=== PATIENT | female | born 1980 | race Caucasian/White ===

== ENCOUNTER → 2016-07-16 | Outpatient (CLI) | payer OTHER | LOC: YCFC.O 10:53 | PROVIDERS: ATTEND Obstetrics & Gynecology | DX: N76.0 Acute vaginitis (principal) ==

== ENCOUNTER → 2016-07-20 | Outpatient (CLI) | payer OTHER | END | disposition home or self-care (01) | LOC: YCFC.O 09:12 | PROVIDERS: ATTEND Nurse Practitioner Family | DX: R50.9 Fever, unspecified (principal) ==

== ENCOUNTER → 2016-08-13 | Outpatient (CLI) | payer OTHER | END | disposition home or self-care (01) | LOC: YCFC.O 09:15 | PROVIDERS: ATTEND Nurse Practitioner Family | DX: E11.9 Type 2 diabetes mellitus without complications (principal); E78.5 Hyperlipidemia, unspecified ==

== ENCOUNTER 2016-08-19 19:16 | Emergency (ER) | payer OTHER ==
--- NOTE | 2016-08-19 20:11 | ED.PDOC ---
History of Present Illness - General Chief Complaint: Respiratory Problem Stated Complaint: flu like sym Time Seen by Provider: 08/19/16 20:05 - History of Present Illness Initial Comments: COUGH, CONGESTION, Timing/Duration: other - 1 DAY Severity: moderate Improving Factors: nothing Worsening Factors: nothing Associated Symptoms: other - RECENTLY TX'D FOR STREP THROAT FELLS THE SAME Allergies/Adverse Reactions: Allergies Acetaminophen [From Darvocet-N] Allergy (Verified 11/19/14 12:19) Vomitting Propoxyphene [From Darvocet-N] Allergy (Verified 11/19/14 12:19) Vomitting Home Medications: Ambulatory Orders Etanercept [Enbrel] 50 mg SC .QSAT 11/19/14 Doxycycline (Monohydrate) [Doxycycline Monohydrate] 100 mg PO BID #20 cap Lisinopril & Hydrochlorothiazi [Lisinopril/Hctz 20-25 mg] 20 - 25 tab PO DAILY 08/19/16 Metformin HCl [Metformin HCl ER] 500 mg PO DAILY 08/19/16 Methotrexate Sodium [Methotrexate] 7.5 mg PO WKLY 08/19/16 Nortriptyline HCl 25 mg PO BEDTIME 08/19/16 Topiramate [Topamax] 100 mg PO TID 08/19/16 Review of Systems - Review of Systems Constitutional: States: chills, fever EENTM: Denies: ear pain, throat pain 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 Denies: short of breath, wheezing Cardiology: Denies: chest pain, palpitations, syncope Gastrointestinal/Abdominal: Denies: abdominal pain, nausea, vomiting Genitourinary: States: no symptoms reported Musculoskeletal: States: no symptoms reported Skin: States: no symptoms reported Neurological: States: no symptoms reported Endocrine: States: no symptoms reported Hematologic/Lymphatic: States: no symptoms reported Past Medical History (General) - Patient Medical History Hx Seizures: No Hx Stroke: No Hx Dementia: No Hx Asthma: No Hx of COPD: No Hx Cardiac Disorders: No Hx Congestive Heart Failure: No Hx Pacemaker: No Hx Hypertension: Yes Hx Thyroid Disease: No Hx Diabetes: Yes Hx Gastroesophageal Reflux: No Hx Renal Disease: No Hx of HIV: No Hx MRSA: No - Vaccination History Hx Tetanus, Diphtheria Vaccination: Yes Hx Influenza Vaccination: Yes Hx Pneumococcal Vaccination: No Immunizations Up to Date: Yes - Social History Hx Tobacco Use: No Hx Alcohol Use: No Hx Substance Use: No - Female History Patient is a Female of Child Bearing Age (10 -59 yrs old): Yes Family Medical History - Family History Father Living Status: Cause of : [place] Hx Family Hypertension: Yes Hx Family Stroke: Yes Hx Cardiac Disease: Yes Hx Family Cancer: Yes - breast,lung Hx Family;Other: rheumatoid arthritis Mother Family History: Unknown Hx Family Cancer: Yes - colon Physical Exam - Physical Exam General Appearance: Alert, No apparent distress, Obese Eye Exam: bilateral normal Ears, Nose, Throat: normal ENT inspection, other - MOIST MM Neck: non-tender, supple, normal inspection Respiratory: lungs clear, normal breath sounds, no respiratory distress Cardiovascular/Chest: regular rate, rhythm, no murmur Gastrointestinal/Abdominal: normal bowel sounds, non tender, soft, no organomegaly Back Exam: normal inspection, no CVA tenderness Extremity: normal range of motion, non-tender, normal inspection Neurologic: alert, normal mood/affect Skin Exam: normal color, warm/dry Lymphatic: no adenopathy Progress - Progress Progress: 08/19/16 21:35 VSS STILL TACHY, PULSE 115. SATS 97% RA (NL)WILL GIVE SECOND BOLUS AND ROCEPHIN 08/19/16 22:50 FEELS BETTER. PULSE 100-110. WILL FINISH IVF AND D/C - EKG/XRAY/CT XRAY: chest - MILD ELAINA PERIHILAR INFILTRATES Departure - Departure Clinical Impression: Pneumonitis, Essential hypertension Time of Disposition: 22:53 Disposition: Discharge to Home or Self Care Condition: Good Departure Forms: ED Discharge - Pt. Copy, Patient Portal Self Enrollment Instructions: Pneumonia-Adult Prescriptions: Doxycycline (Monohydrate) [Doxycycline Monohydrate] 100 mg PO BID #20 cap Home Medications: Ambulatory Orders Etanercept [Enbrel] 50 mg SC .QSAT 11/19/14 Doxycycline (Monohydrate) [Doxycycline Monohydrate] 100 mg PO BID #20 cap Lisinopril & Hydrochlorothiazi [Lisinopril/Hctz 20-25 mg] 20 - 25 tab PO DAILY 08/19/16 Metformin HCl [Metformin HCl ER] 500 mg PO DAILY 08/19/16 Methotrexate Sodium [Methotrexate] 7.5 mg PO WKLY 08/19/16 Nortriptyline HCl 25 mg PO BEDTIME 08/19/16 Topiramate [Topamax] 100 mg PO TID 08/19/16
[2016-08-19] MEDS ORDERED: SODIUM CHLORIDE 0.9% 1000ML 1,000 ML IVS ONE ×2 (20:14→21:44)
--- NOTE | 2016-08-19 20:37 | RAD ---
PROCEDURE: Chest,2 Views CLINICAL HISTORY: COUGH INDICATION: Same as above COMPARISON: None TECHNIQUE: PA and and lateral chest radiographs were obtained. FINDINGS: The lung galvez are well inflated. There are no discrete airspace infiltrates, pneumothoraces or pleural effusions. The pulmonary vascularity is normal The cardiomediastinal silhouette is unremarkable for patient's age and sex. IMPRESSION: There is no acute pleural-parenchymal process seen in the imaged lung galvez. Place of interpretation: [facility]. Electronically signed by: Chucky Jay MD 08/19/2016 8:37 PM MAT TESTER
[2016-08-19] MEDS ORDERED: cefTRIAXone SODIUM 1 GM in SODIUM CHL 0.9% 50ML MIN-BAG+ 50 ML IVPB ONE (21:38)
[2016-08-19] MEDS ORDERED: SODIUM CHL 0.9% 50ML MIN-BAG+ 50 ML IVPB ONE (21:44)
[2016-08-19] MEDS ORDERED: cefTRIAXone SODIUM 1 GM VIAL ONE (21:44)
[2016-08-19 22:26] VITALS: O2SAT 100
[2016-08-19 23:06] VITALS: BP 103/69; TEMP 100.5
== END 2016-08-19 23:05 | disposition home or self-care (01) ==
LOC: ER 19:16
DX: J18.9 Pneumonia, unspecified organism (principal); E11.9 Type 2 diabetes mellitus without complications; Z88.6 Allergy status to analgesic agent; Z88.8 Allergy status to other drugs, medicaments and biological substances; Z79.899 Other long term (current) drug therapy

== ENCOUNTER 2016-08-21 21:50 | Emergency (ER) | payer OTHER ==
--- NOTE | 2016-08-21 22:12 | ED.PDOC ---
History of Present Illness - General Chief Complaint: General Stated Complaint: cough Time Seen by Provider: 08/21/16 21:52 Source: patient - History of Present Illness Comments: A.S. 36 y/o female with history of RA and DM2 stated she had non productive cough for the last 30 days and felt getting worse 3 days ago getting more productive of thick creamy phlegm. She had also been treated for strep throat 2 weeks ago.Seen here 3 days ago and was diagnosed with pneumonia but x-ray:no acute process was noted and cbc-was normal.Prescibed doxycycline which she had been taking. Timing/Duration: getting worse, other - 30 days Cough Quality/Degree: productive cough Possible Cause: unknown cause Improving Factors: nothing Worsening Factors: nothing Associated Symptoms: nasal congestion, nasal drainage, other - pleuritic chest pain Respiratory Risk Factors: no cause identified Allergies/Adverse Reactions: Allergies Acetaminophen [From Darvocet-N] Allergy (Verified 11/19/14 12:19) Vomitting Propoxyphene [From Darvocet-N] Allergy (Verified 11/19/14 12:19) Vomitting Home Medications: Ambulatory Orders Etanercept [Enbrel] 50 mg SC .QSAT 11/19/14 Doxycycline (Monohydrate) [Doxycycline Monohydrate] 100 mg PO BID #20 cap Lisinopril & Hydrochlorothiazi [Lisinopril/Hctz 20-25 mg] 20 - 25 tab PO DAILY 08/19/16 Metformin HCl [Metformin HCl ER] 500 mg PO DAILY 08/19/16 Methotrexate Sodium [Methotrexate] 7.5 mg PO WKLY 08/19/16 Nortriptyline HCl 25 mg PO BEDTIME 08/19/16 Topiramate [Topamax] 100 mg PO TID 08/19/16 Albuterol Inhaler [Ventolin Hfa Inhaler] 108 mcg IN Q6HRS #1 inh 08/22/16 Benzonatate Perles [Tessalon Perles] 200 mg PO BID #30 cap 08/22/16 Fluticasone Propionate Hfa [Flovent Hfa] 110 mcg IN BID #1 ml 08/22/16 Oseltamivir [Tamiflu] 75 mg PO Q12HR #10 cap 08/22/16 Tramadol HCl 50 mg PO Q6HRS PRN #14 tab 08/22/16 Review of Systems - Review of Systems Constitutional: States: no symptoms reported EENTM: States: nose congestion Respiratory: States: see HPI, other - pleuritic chest pain Cardiology: States: no symptoms reported Gastrointestinal/Abdominal: States: no symptoms reported Genitourinary: States: no symptoms reported Musculoskeletal: States: joint pain Skin: States: no symptoms reported Neurological: States: no symptoms reported Endocrine: States: no symptoms reported Hematologic/Lymphatic: States: no symptoms reported Past Medical History (General) - Patient Medical History Hx Seizures: No Hx Stroke: No Hx Dementia: No Hx Asthma: No Hx of COPD: No Hx Cardiac Disorders: No Hx Congestive Heart Failure: No Hx Pacemaker: No Hx Hypertension: Yes Hx Thyroid Disease: No Hx Diabetes: Yes Hx Gastroesophageal Reflux: No Hx Renal Disease: No Hx of HIV: No Hx MRSA: No Hx Other PMH: Yes - Rheumatoid arthritis Surgical History: other - left parotid gland resection - Vaccination History Hx Tetanus, Diphtheria Vaccination: Yes Hx Influenza Vaccination: Yes Hx Pneumococcal Vaccination: No - Social History Hx Tobacco Use: No Hx Alcohol Use: No Hx Substance Use: No - Activities of Daily Living Patient Lives Alone: No - family - Female History Patient is a Female of Child Bearing Age (10 -59 yrs old): Yes Hx Last Menstrual Period: 08/20/16 Patient : No Family Medical History - Family History Father Living Status: Cause of : [place] Hx Family Hypertension: Yes Hx Family Stroke: Yes Hx Cardiac Disease: Yes Hx Family Diabetes: Yes Hx Family Cancer: Yes - breast,lung,colon Hx Family;Other: rheumatoid arthritis Mother Family History: Unknown Hx Family Cancer: Yes - colon Physical Exam - Physical Exam General Appearance: Alert, Anxious, No apparent distress Eye Exam: bilateral normal ENT Exam: hearing grossly normal, TMs normal, nasal congestion, nasal drainage Neck: non-tender, full range of motion, supple, normal inspection Respiratory: chest non-tender, no respiratory distress, no accessory muscle use , other - coarse breath sounds Cardiovascular/Chest: normal peripheral pulses, regular rate, rhythm, no edema, no gallop, no JVD, no murmur Gastrointestinal/Abdominal: normal bowel sounds, non tender, soft, no organomegaly, no pulsatile mass Extremity: normal range of motion, non-tender, pedal edema - trace Neurologic: no motor/sensory deficits, alert, oriented x 3 Skin Exam: normal color, warm/dry Departure - Departure Clinical Impression: Pleuritic chest pain Pneumonia Qualifiers: Pneumonia type: due to unspecified organism Laterality: right Lung location: upper lobe of lung Qualifier Code: (J18.9) Pneumonia, unspecified organism Time of Disposition: :33 Disposition: Discharge to Home or Self Care Condition: Good Referrals: Caitlyn Allen, AUDIOVISUAL LEAD TECHNICIAN [Primary Care Provider] - 1-2 Weeks Prescriptions: Tramadol HCl 50 mg PO Q6HRS PRN #14 tab PRN Reason: Pain Albuterol Inhaler [Ventolin Hfa Inhaler] 108 mcg IN Q6HRS #1 inh Oseltamivir [Tamiflu] 75 mg PO Q12HR #10 cap Fluticasone Propionate Hfa [Flovent Hfa] 110 mcg IN BID #1 ml Benzonatate Perles [Tessalon Perles] 200 mg PO BID #30 cap Home Medications: Ambulatory Orders Etanercept [Enbrel] 50 mg SC .QSAT 11/19/14 Doxycycline (Monohydrate) [Doxycycline Monohydrate] 100 mg PO BID #20 cap Lisinopril & Hydrochlorothiazi [Lisinopril/Hctz 20-25 mg] 20 - 25 tab PO DAILY 08/19/16 Metformin HCl [Metformin HCl ER] 500 mg PO DAILY 08/19/16 Methotrexate Sodium [Methotrexate] 7.5 mg PO WKLY 08/19/16 Nortriptyline HCl 25 mg PO BEDTIME 08/19/16 Topiramate [Topamax] 100 mg PO TID 08/19/16 Albuterol Inhaler [Ventolin Hfa Inhaler] 108 mcg IN Q6HRS #1 inh 08/22/16 Benzonatate Perles [Tessalon Perles] 200 mg PO BID #30 cap 08/22/16 Fluticasone Propionate Hfa [Flovent Hfa] 110 mcg IN BID #1 ml 08/22/16 Oseltamivir [Tamiflu] 75 mg PO Q12HR #10 cap 08/22/16 Tramadol HCl 50 mg PO Q6HRS PRN #14 tab 08/22/16 Additional Instructions: Continue with Doxycyline as directed;follow up with primary md 08/24/2016;Drink extra fluids
[2016-08-21] MEDS ORDERED: IPRATROPIUM/ALBUTEROL 3 ML VIAL NEB ONE ×2 (22:14→23:58)
[2016-08-21] MEDS ORDERED: BENZONATATE PERLES 100 MG CAP PO ONE (22:15)
[2016-08-21] MEDS ORDERED: diphenhydrAMINE HCL 25 MG CAP PO ONE (22:16)
[2016-08-21] MEDS ORDERED: SODIUM CHLORIDE 0.9% 1000ML 1,000 ML IVS ONE (22:32)
[2016-08-21] MEDS ORDERED: KETOROLAC TROMETHAMINE INJ 30 MG/ML VIAL IV ONE (22:39)
[2016-08-21] MEDS ORDERED: methylPREDNISolone SODIUM SUC 125 MG/2 ML VIAL IV ONE (22:54)
--- NOTE | 2016-08-22 00:06 | RAD ---
EXAM DESCRIPTION: Chest,2 Views CLINICAL HISTORY: 36 years, Female, cough x 30 days COMPARISON: Chest x-ray dated 08/19/2016. FINDINGS: PA and lateral chest radiographs were performed. In the interval since the prior study, rounded airspace opacities have supervened in the RIGHT upper lobe. The lungs are moderately expanded and otherwise clear. The costophrenic sulci are sharp. The cardiac silhouette, hilar regions, trachea, soft tissues and bony structures are unremarkable. IMPRESSION: New nodular RIGHT upper lobe airspace opacities possibly representing nodular foci of pneumonia. However, follow-up to resolution is recommended. Electronically signed by: Kelin Walker MD 08/22/2016 12:05 AM [employer]
--- NOTE | 2016-08-22 00:08 | RAD ---
EXAM DESCRIPTION: Sinuses Series CLINICAL HISTORY: 36 years, Female, cough x 30 days COMPARISON: None. FINDINGS: Three views of the paranasal sinuses were performed. Maxillary, ethmoid, frontal and sphenoid sinuses are patent. Patent central airway. Patent mastoid air cells. No fluid is seen. No bony hyperostosis detected. No osteoma. IMPRESSION: No sinus disease. Electronically signed by: Kelin Walker MD 08/22/2016 12:06 AM [facility]
[2016-08-22] MEDS ORDERED: OSELTAMIVIR 75 MG CAP PO ONE (00:17)
[2016-08-22] MEDS ORDERED: AZITHROMYCIN IV 500 MG in SODIUM CHLORIDE 0.9% 250ML 250 ML IVPB ONE (00:45)
[2016-08-22] MEDS ORDERED: AZITHROMYCIN IV 500 MG VIAL IVPB ONE (00:47)
[2016-08-22] MEDS ORDERED: SODIUM CHLORIDE 0.9% 250ML 250 ML ONE (00:47)
[2016-08-22] MEDS ORDERED: KETOROLAC TROMETHAMINE INJ 30 MG/ML VIAL IV ONE (02:05)
[2016-08-22] MEDS ORDERED: LEVALBUTEROL NEBS 1.25 MG/3 ML VIAL NEB ONE (02:05)
[2016-08-22 02:29] VITALS: O2SAT 97
[2016-08-22] MEDS ORDERED: MORPHINE SULFATE INJ 10 MG/ML VIAL IV ONE (02:31)
[2016-08-22 03:06] VITALS: BP 124/74; TEMP 97.7
== END 2016-08-22 03:06 | disposition home or self-care (01) ==
LOC: ER 21:50
DX: J18.9 Pneumonia, unspecified organism (principal); R07.81 Pleurodynia; I10 Essential (primary) hypertension; E11.9 Type 2 diabetes mellitus without complications; Z79.899 Other long term (current) drug therapy; Z88.8 Allergy status to other drugs, medicaments and biological substances

== ENCOUNTER → 2016-08-24 | Outpatient (CLI) | payer OTHER ==
--- NOTE | 2016-08-24 16:10 | RAD ---
EXAM DESCRIPTION: Chest,2 Views CLINICAL HISTORY: 36 years Female, RUQ PNEUMONIA IMPRESSION: Today's exam is compared to August 21, 2016. Patchy infiltrates within the right upper lobe. Slight improvement of the findings of the right upper lobe. Interval development of infiltrates within the left lower lobe. Heart size is normal. No pleural effusion or pneumothorax. Electronically signed by: Abdoulaye East MD 08/24/2016 4:09 PM CDT
== END | disposition home or self-care (01) ==
LOC: YCFC.O 13:35
PROVIDERS: ATTEND Nurse Practitioner Family
DX: J18.9 Pneumonia, unspecified organism (principal)

== ENCOUNTER → 2016-09-16 | Outpatient (CLI) | payer OTHER ==
--- NOTE | 2016-09-16 12:08 | RAD ---
EXAM DESCRIPTION: Chest,2 Views CLINICAL HISTORY: PNEUMONIA COMPARISON: August 24, 2016 FINDINGS: Two-view chest x-ray shows cardiomediastinal silhouette and pulmonary vasculature to be within normal limits. The lungs are normally aerated and clear. Costophrenic angles are sharp. Osseous structures are unremarkable IMPRESSION: No radiographic evidence of acute cardiopulmonary disease. Interval resolution of the pulmonary infiltrate seen on previous exam Electronically signed by: Moi Mata MD 09/16/2016 12:07 PM CDT
== END | disposition home or self-care (01) ==
LOC: YCFC.O 09:32
PROVIDERS: ATTEND Nurse Practitioner Family
DX: J18.9 Pneumonia, unspecified organism (principal)

== ENCOUNTER → 2017-07-26 | Outpatient (CLI) | payer OTHER ==
--- NOTE | 2017-07-28 13:10 | RAD ---
EXAM DESCRIPTION: Elbow,Left 3 Views CLINICAL HISTORY: 37 years Female, SEVERE RA WITH PAINFUL NODULES COMPARISON: None. FINDINGS: 3 views of the left elbow show slight cortical irregularity involving the left radial head which does not appear acute. No acute fracture or malalignment is identified. No definite left elbow joint effusion. No soft tissue mass is identified. No radiopaque foreign body or soft tissue gas. Joint space narrowing is noted at the left ulnar/trochlear articulation. IMPRESSION: Mild degenerative changes, otherwise unremarkable exam. Electronically signed by: Santiago Escobar MD 07/28/2017 1:09 PM [facility]
--- NOTE | 2017-07-28 13:11 | RAD ---
EXAM DESCRIPTION: Elbow,Right 3 Views CLINICAL HISTORY: 37 years Female, SEVERE RA WITH PAINFUL NODULES COMPARISON: None. FINDINGS: 3 views of the right elbow show no acute fracture or malalignment. There is no right elbow joint effusion. No soft tissue mass or calcification is identified. Is only mild joint space narrowing involving the right ulnar/trochlear articulation. IMPRESSION: Mild degenerative changes, otherwise unremarkable exam. Electronically signed by: Santiago Escobar MD 07/28/2017 1:10 PM [facility]
== END ==
LOC: RAD 17:29
PROVIDERS: ATTEND Internal Medicine Sports Medicine
DX: M05.1 Rheumatoid lung disease with rheumatoid arthritis (principal); M06.9 Rheumatoid arthritis, unspecified

== ENCOUNTER → 2018-01-20 | Outpatient (CLI) | payer OTHER | LOC: LAB.O 16:20 | PROVIDERS: ATTEND Surgery | DX: E56.9 Vitamin deficiency, unspecified (principal); R12 Heartburn; R53.83 Other fatigue; R53.81 Other malaise; I10 Essential (primary) hypertension; M06.9 Rheumatoid arthritis, unspecified ==

== ENCOUNTER 2018-03-05 03:24 | Emergency (ER) | payer OTHER ==
[2018-03-05 03:35] VITALS: TEMP 97.6
[2018-03-05] MEDS ORDERED: fentaNYL CITRATE INJ 50 MCG/ML AMP ONE (03:40)
--- NOTE | 2018-03-05 03:44 | ED.PDOC ---
History of Present Illness - General Chief Complaint: General Time Seen by Provider: 03/05/18 03:41 Source: patient, Vital Signs reviewed Additional Information: 37 YEAR OLD PRESENTS WITH SEVERE JOINT PAIN BELOW THE NECK SHE HAS TAKEN METHROTREXATE AND EMBREL SHOTS YESTERDAY TOOK ADVIL WITH NO RELEIEF - History of Present Illness Timing/Duration: 24 hours Severity: severe Improving Factors: nothing Worsening Factors: nothing Associated Symptoms: denies symptoms Allergies/Adverse Reactions: Allergies Propoxyphene [From Darvocet-N] Allergy (Verified 11/19/14 12:19) Vomitting Home Medications: Ambulatory Orders Etanercept [Enbrel] 50 mg SC .QSAT 11/19/14 Methotrexate Sodium [Methotrexate] 15 mg PO WKLY 08/19/16 Acetamin W/Cod #3 Tab [Tylenol w/CODEINE #3] 1 ea PO Q6HR PRN #40 tab 03/05/18 Duloxetine HCl [Duloxetine HCl] 30 mg PO DAILY 03/05/18 Venlafaxine Xr [Effexor Xr] 75 mg PO DAILY 03/05/18 Review of Systems - Review of Systems Constitutional: States: no symptoms reported EENTM: States: no symptoms reported Respiratory: States: no symptoms reported Cardiology: States: no symptoms reported Gastrointestinal/Abdominal: States: no symptoms reported Genitourinary: States: no symptoms reported Musculoskeletal: States: see HPI Skin: States: no symptoms reported Neurological: States: see HPI Endocrine: States: no symptoms reported Past Medical History (General) - Patient Medical History Hx Seizures: No Hx Stroke: No Hx Dementia: No Hx Asthma: No Hx of COPD: No Hx Cardiac Disorders: No Hx Congestive Heart Failure: No Hx Pacemaker: No Hx Hypertension: Yes Hx Thyroid Disease: No Hx Diabetes: No Hx Gastroesophageal Reflux: No Hx Renal Disease: No Hx Cancer: No Hx of HIV: No Hx MRSA: No Surgical History: other - Vaccination History Hx Tetanus, Diphtheria Vaccination: Yes Hx Influenza Vaccination: Yes - 2016 Hx Pneumococcal Vaccination: Yes - 2017 - Social History Hx Tobacco Use: No Hx Alcohol Use: No Hx Substance Use: No - Female History Patient is a Female of Child Bearing Age (10 -59 yrs old): Yes Hx Last Menstrual Period: 08/20/16 Patient : No Family Medical History - Family History Father Living Status: Cause of : [place] Hx Family Hypertension: Yes Hx Family Stroke: Yes Hx Cardiac Disease: Yes Hx Family Diabetes: Yes Hx Family Cancer: Yes - breast,lung,colon Hx Family;Other: rheumatoid arthritis Mother Family History: Unknown Hx Family Cancer: Yes - colon Physical Exam - Physical Exam General Appearance: Alert, Obvious distress Eye Exam: bilateral normal Ears, Nose, Throat: hearing grossly normal, normal ENT inspection, normal pharynx Neck: non-tender, full range of motion, supple Respiratory: chest non-tender, lungs clear, normal breath sounds, no respiratory distress Cardiovascular/Chest: normal peripheral pulses, regular rate, rhythm, no edema, no gallop, no JVD Gastrointestinal/Abdominal: normal bowel sounds, non tender, soft, no organomegaly 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 Copy, Patient Portal Self Enrollment Diet: resume usual diet Referrals: Caitlyn Allen NP [Primary Care Provider] - 1-2 Weeks Home Medications: Ambulatory Orders Etanercept [Enbrel] 50 mg SC .QSAT 11/19/14 Methotrexate Sodium [Methotrexate] 15 mg PO WKLY 08/19/16 Acetamin W/Cod #3 Tab [Tylenol w/CODEINE #3] 1 ea PO Q6HR PRN #40 tab 03/05/18 Duloxetine HCl [Duloxetine HCl] 30 mg PO DAILY 03/05/18 Venlafaxine Xr [Effexor Xr] 75 mg PO DAILY 03/05/18
[2018-03-05] MEDS ORDERED: fentaNYL CITRATE INJ 50 MCG/ML AMP IV ONE ×2 (03:45)
[2018-03-05 04:16] VITALS: O2SAT 99
[2018-03-05 04:46] VITALS: BP 128/88
== END 2018-03-05 04:46 | disposition home or self-care (01) ==
LOC: ER 03:24
DX: M06.9 Rheumatoid arthritis, unspecified (principal); I10 Essential (primary) hypertension; Z88.8 Allergy status to other drugs, medicaments and biological substances; Z79.899 Other long term (current) drug therapy

== ENCOUNTER 2018-04-11 04:10 | Emergency (ER) | payer OTHER ==
[2018-04-11 04:22] VITALS: TEMP 97.5
[2018-04-11] MEDS ORDERED: PROMETHAZINE HCL INJ 25 MG/ML VIAL IM ONE (04:32)
[2018-04-11] MEDS ORDERED: LACTATED RINGERS 1,000 ML IVS ONE (04:32)
--- NOTE | 2018-04-11 04:46 | ED.PDOC ---
History of Present Illness - General Chief Complaint: GI Problem Stated Complaint: N/V, headache Time Seen by Provider: 04/11/18 04:29 Information Source: patient Exam Limitations: no limitations - History of Present Illness Initial Comments: Fouzia Huber 37 y/o female stated that she had N/V since Wednesday-2017.Stated unable to keep anything down on her stomach tried grapes but threw it back up.No diarrhea ,hematemesis,dysuria,or abdominal pains.Denies ill contact,stated family ate same food before getting sick but everybody was fine.Also had dull frontal and bitemporal headache which had been steady with it.No blurry vision,photophobia,phonopsia. Abdominal Pain Onset Location: other - NONE Pain Radiation: no radiation Quality: intermittent Timing/Duration: days - 2 06/15 Improving Factors: nothing Worsening Factors: eating Associated Symptoms: other - see hpi Review of Systems - Review of Systems Constitutional: States: no symptoms reported EENTM: States: no symptoms reported Respiratory: States: no symptoms reported Cardiology: States: no symptoms reported Gastrointestinal/Abdominal: States: see HPI Genitourinary: States: no symptoms reported Musculoskeletal: States: no symptoms reported Skin: States: no symptoms reported Neurological: States: no symptoms reported Past Medical History (General) - Patient Medical History Hx Seizures: No Hx Stroke: No Hx Dementia: No Hx Asthma: No Hx of COPD: No Hx Cardiac Disorders: No Hx Congestive Heart Failure: No Hx Pacemaker: No Hx Hypertension: Yes - history Hx Thyroid Disease: No Hx Diabetes: No Hx Gastroesophageal Reflux: Yes Hx Renal Disease: No Hx Cancer: No Hx of HIV: No Hx Hepatitis C: No Hx MRSA: No Hx Other PMH: Yes - rheumatoid Arthritis Surgical History: other - parotid gland surgery,gastric sleeve laparoscopic-2017 - Vaccination History Hx Tetanus, Diphtheria Vaccination: No Hx Influenza Vaccination: Yes - 2017 Hx Pneumococcal Vaccination: Yes - 2017 - Social History Hx Tobacco Use: No Hx Alcohol Use: No Hx Substance Use: No Hx Physical Abuse: No Hx Emotional Abuse: No - Female History Patient is a Female of Child Bearing Age (10 -59 yrs old): Yes Hx Last Menstrual Period: 03/22/18 Patient : No Family Medical History - Family History Father Living Status: Cause of : [place] Hx Family Hypertension: Yes Hx Family Stroke: Yes Hx Cardiac Disease: Yes Hx Family Diabetes: Yes Hx Family Cancer: Yes - breast,lung,colon Hx Family;Other: rheumatoid arthritis Mother Family History: Unknown Living Status: Still Living Hx Family Cancer: Yes - colon Physical Exam - Physical Exam General Appearance: Alert, Anxious, No apparent distress Eyes, Ears, Nose, Throat Exam: normal ENT inspection, pharynx normal Neck: non-tender, full range of motion, supple, normal inspection Respiratory: chest non-tender, lungs clear, normal breath sounds Cardiovascular/Chest: normal peripheral pulses, regular rate, rhythm, no murmur Peripheral Pulses: No deficit Gastrointestinal/Abdominal: non tender, soft, no organomegaly Back Exam: no CVA tenderness, no vertebral tenderness Extremity: no pedal edema, no calf tenderness Neurologic: alert, oriented x 3 Skin Exam: normal color, warm/dry Progress - Progress Progress: 04/11/18 05:26 Vital Signs - 8 hr 04/11/18 04:15 Temperature 97.5 F L Pulse Rate [ 120 H monitor] Respiratory 20 Rate Blood Pressure 117/77 [Left Arm] O2 Sat by Pulse 100 Oximetry - Results/Orders Results/Orders: 04/11/18 04:32 IV Care:Saline Lock per Protoc QSHIFT URINALYSIS Stat 04/11/18 04:57 Hold Metformin x 48Hrs [id number] Laboratory Results - last 24 hr 04/11/18 04/11/18 04:30 04:30 WBC 9.8 RBC 4.88 Hgb 14.8 Hct 44.5 MCV 91.2 MCH 30.5 MCHC 33.4 RDW 13.8 Plt Count 278 MPV 7.9 Absolute Neuts (auto) 5.40 Absolute Lymphs (auto) 3.10 Absolute Monos (auto) 0.90 H Absolute Eos (auto) 0.20 Absolute Basos (auto) 0.00 Neutrophils % 55.2 Lymphocytes % 32.2 Monocytes % 9.6 H Eosinophils % 2.5 Basophils % 0.5 PT 9.9 INR 0.99 PTT (SP) 24.3 Sodium 138 Potassium 3.2 L Chloride 104 Carbon Dioxide 26 Anion Gap 11.2 L BUN 6 L Creatinine 0.59 L BUN/Creatinine Ratio 10.2 Random Glucose 123 H Serum Osmolality 274.7 L Calcium 9.1 Magnesium 1.8 Total Bilirubin 0.8 Direct Bilirubin 0.2 Indirect Bilirubin 0.6 AST 16 ALT 13 Alkaline Phosphatase 56 Creatine Kinase 41 CK-MB (CK-2) 1.0 CK-MB (CK-2) % Not Reportable Troponin I < 0.02 Serum Total Protein 6.8 Albumin 3.6 Lipase 27 Serum HCG, Qual Negative - EKG/XRAY/CT CT Ordered: Yes - Head/Abd/P-no acute abnormalities Departure - Departure Clinical Impression: Electrolyte imbalance, History of bariatric surgery Nausea & vomiting Qualifiers: Vomiting type: unspecified Vomiting Intractability: non-intractable Qualified Code(s): R11.2 - Nausea with vomiting, unspecified Time of Disposition: 05:59 Disposition: Discharge to Home or Self Care Condition: Good Departure Forms: ED Discharge - Pt. Copy, Patient Portal Self Enrollment Instructions: Postgastric Bypass Diet Referrals: Caitlyn Allen NP [Primary Care Provider] - 1-2 Weeks Prescriptions: Ondansetron [Zofran Odt] 8 mg PO Q8HRS PRN #12 tab PRN Reason: Vomiting Home Medications: Ambulatory Orders Etanercept [Enbrel] 50 mg SC .QSAT 11/19/14 Methotrexate Sodium [Methotrexate] 15 mg PO WKLY 08/19/16 Duloxetine HCl [Duloxetine HCl] 30 mg PO DAILY 03/05/18 Ondansetron [Zofran Odt] 8 mg PO Q8HRS PRN #12 tab 04/11/18 Pantoprazole Tablet [Protonix] 40 mg PO ACBK 04/11/18 Venlafaxine HCl [Venlafaxine HCl ER] 75 mg PO DAILY 04/11/18 Additional Instructions: Need to call up the Bariatric surgeons office today-11 April 2018
[2018-04-11] MEDS ORDERED: PANTOPRAZOLE INJECTION 80 MG in SODIUM CHLORIDE 0.9% 100ML 80 ML IVPB ONE (05:23)
[2018-04-11] MEDS ORDERED: SODIUM CHLORIDE 0.9% 100ML 100 ML IVPB ONE (05:39)
[2018-04-11] MEDS ORDERED: PANTOPRAZOLE SODIUM IV 40 MG VIAL ONE (05:39)
--- NOTE | 2018-04-11 05:49 | CT ---
EXAM: CT head without contrast. INDICATION: Headache. TECHNIQUE: Contiguous axial CT images of the brain. Intravenous contrast: Absent. DLP 967 mGy-cm. This exam was performed according to our departmental dose-optimization program, which includes automated exposure control, adjustment of the mA and/or kV according to patient size and/or use of iterative reconstruction technique. COMPARISON: 05/13/2006. FINDINGS: Subcutaneous: Unremarkable. No acute intracranial hemorrhage. No midline shift. No mass effect. Ventricles: No hydrocephalus. Lee-white differentiation preserved. Paranasal sinuses/mastoid air cells: Visualized portions are aerated. Bones/orbits: Visualized portions are unremarkable. IMPRESSION: 1. No CT evidence of acute intracranial hemorrhage. EXAM: CT abdomen and pelvis with contrast. INDICATION: Abdominal pain, acute. TECHNIQUE: Contiguous axial CT images of the abdomen and pelvis. Intravenous contrast: Present. Oral contrast: Absent. DLP 1373 mGy-cm. This exam was performed according to our departmental dose-optimization program, which includes automated exposure control, adjustment of the mA and/or kV according to patient size and/or use of iterative reconstruction technique. COMPARISON: None. FINDINGS: Lower chest: Partially imaged. Lung bases: Unremarkable. Cardiac apex: Unremarkable. Solid abdominal viscera: Liver: Unremarkable. Gallbladder: Unremarkable. Pancreas: Unremarkable. Spleen: Unremarkable. Adrenal glands: Unremarkable. Right kidney: No hydronephrosis. Left kidney: No hydronephrosis. Urinary bladder: Unremarkable. Abdominal aorta: Unremarkable. Peritoneal: Free fluid: None. Free air: None. Other: No pathologic sized lymph nodes in the upper abdomen. Bowel: Stomach: Postsurgical changes Small bowel: Unremarkable. Appendix: Unremarkable. Colon: Unremarkable. Rectum: Unremarkable. Uterus: Unremarkable. Bones: Unremarkable. IMPRESSION: 1. No CT evidence of acute process of the abdomen. Electronically signed by: Cristian Bergman MD 04/11/2018 5:48 AM CDT Workstation: [employer]
[2018-04-11 07:00] VITALS: BP 119/89; O2SAT 99
== END 2018-04-11 07:12 | disposition home or self-care (01) ==
LOC: ER 04:10
DX: R11.2 Nausea with vomiting, unspecified (principal); E87.8 Other disorders of electrolyte and fluid balance, not elsewhere classified; R51 Headache; I10 Essential (primary) hypertension; K21.9 Gastro-esophageal reflux disease without esophagitis; M06.9 Rheumatoid arthritis, unspecified; Z79.899 Other long term (current) drug therapy
CPT/HCPCS: 36415; 70450; 74177; 80048; 80076; 82550; 82553; 83690; 84484; 84703; 85025; 85610; 85730; J2060; J2550; J7050; J7120

== ENCOUNTER 2018-10-07 20:39 | Emergency (ER) | payer OTHER ==
[2018-10-07] MEDS: diphenhydrAMINE HCL 50 MG/ML VIAL IV ONE (21:27)
[2018-10-07] MEDS: PROCHLORPERAZINE INJ 10 MG/2 ML VIAL IV ONE (21:27)
[2018-10-07] MEDS: SODIUM CHLORIDE 0.9% 1000ML 1,000 ML IVS ONE (21:27)
--- NOTE | 2018-10-07 22:19 | ED.PDOC ---
History of Present Illness - General Chief Complaint: Headache Stated Complaint: headache x 2 days Time Seen by Provider: 10/07/18 20:42 Source: patient, RN notes reviewed, Vital Signs reviewed Exam Limitations: no limitations - History of Present Illness Initial Comments: c/o left retro-orbital headache that started 2 days ago & has worsened. Identical to previous migraines for which she has had a complete neurologic evaluation. Off meds for them. Timing/Duration: constant Quality: severe, pressure, throbbing Recent Head Trauma: occasional headaches, other - no recent head injuries, fever or sinus problems Improving Factors: nothing Worsening Factors: other - light Associated Symptoms: nausea/vomiting Allergies/Adverse Reactions: Allergies Propoxyphene [From Darvocet-N] Allergy (Verified 11/19/14 12:19) Vomitting Home Medications: Ambulatory Orders Etanercept [Enbrel] 50 mg SC .QSAT 11/19/14 Methotrexate Sodium [Methotrexate] 15 mg PO WKLY 08/19/16 Duloxetine HCl 30 mg PO DAILY 03/05/18 Ondansetron [Zofran Odt] 8 mg PO Q8HRS PRN #12 tab 04/11/18 Pantoprazole Tablet [Protonix] 40 mg PO ACBK 04/11/18 Venlafaxine HCl [Venlafaxine HCl ER] 75 mg PO DAILY 04/11/18 Review of Systems - Review of Systems Constitutional: States: no symptoms reported EENTM: States: no symptoms reported Respiratory: States: no symptoms reported Gastrointestinal/Abdominal: States: see HPI, nausea, vomiting Genitourinary: States: no symptoms reported Musculoskeletal: States: no symptoms reported Skin: States: no symptoms reported Neurological: States: see HPI Past Medical History (General) - Patient Medical History Hx Seizures: No Hx Stroke: No Hx Dementia: No Hx Asthma: No Hx of COPD: No Hx Cardiac Disorders: No Hx Congestive Heart Failure: No Hx Pacemaker: No Hx Hypertension: Yes - history Hx Thyroid Disease: No Hx Diabetes: No Hx Gastroesophageal Reflux: Yes Hx Renal Disease: No Hx Cancer: No Hx of HIV: No Hx Hepatitis C: No Hx MRSA: No Surgical History: other - Vaccination History Hx Tetanus, Diphtheria Vaccination: No Hx Influenza Vaccination: Yes Hx Pneumococcal Vaccination: No Immunizations Up to Date: Yes - Social History Hx Tobacco Use: No Hx Chewing Tobacco Use: No Hx Alcohol Use: No Hx Substance Use: No Hx Substance Use Treatment: No Hx Depression: No Feels Threatened In Home Enviroment: No Feels Threatened In a Relationship: No Hx Physical Abuse: No Hx Emotional Abuse: No Hx Suspected Abuse: No - Activities of Daily Living Hospice Agency (if applicable):: None - Female History Patient is a Female of Child Bearing Age (10 -59 yrs old): Yes Hx Last Menstrual Period: 03/22/18 Patient : No Family Medical History - Family History Father Living Status: Cause of : CO Hx Family Hypertension: Yes Hx Family Stroke: Yes Hx Cardiac Disease: Yes Hx Family Diabetes: Yes Hx Family Cancer: Yes - breast,lung,colon Hx Family;Other: rheumatoid arthritis Mother Family History: Unknown Living Status: Still Living Hx Family Cancer: Yes - colon Physical Exam - Physical Exam General Appearance: Alert, No apparent distress, Other - uncomfortable. Shielding her eyes. 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 Says she knows she will feel better if she can go home & go to bed. States she is positive it's a migraine. Has been up & about here. IVF are finished. No vomiting. Has a PCP for f/u. Departure - Departure Clinical Impression: Migraine Qualifiers: Status migrainosus presence: without status migrainosus Intractability: not intractable Time of Disposition: 22:19 Disposition: Discharge to Home or Self Care Condition: Good Departure Forms: ED Discharge - Pt. Copy, Patient Portal Self Enrollment Instructions: DI for Headache Referrals: Caitlyn Allen NP [Primary Care Provider] - 10/10/18 Home Medications: Ambulatory Orders Etanercept [Enbrel] 50 mg SC .QSAT 11/19/14 Methotrexate Sodium [Methotrexate] 15 mg PO WKLY 08/19/16 Duloxetine HCl 30 mg PO DAILY 03/05/18 Ondansetron [Zofran Odt] 8 mg PO Q8HRS PRN #12 tab 04/11/18 Pantoprazole Tablet [Protonix] 40 mg PO ACBK 04/11/18 Venlafaxine HCl [Venlafaxine HCl ER] 75 mg PO DAILY 04/11/18
[2018-10-07 22:21] VITALS: BP 151/84; TEMP 97.9; O2SAT 100
== END 2018-10-07 22:21 | disposition home or self-care (01) ==
LOC: ER 20:39
DX: G43.909 Migraine, unspecified, not intractable, without status migrainosus (principal); K21.9 Gastro-esophageal reflux disease without esophagitis; Z79.899 Other long term (current) drug therapy; Z88.8 Allergy status to other drugs, medicaments and biological substances
CPT/HCPCS: J0780; J1200; J7030

== ENCOUNTER → 2019-11-27 | Outpatient (CLI) | payer BC | LOC: LAB.O 18:27 | PROVIDERS: ATTEND Internal Medicine Sports Medicine | DX: M05.89 Other rheumatoid arthritis with rheumatoid factor of multiple sites (principal); M35.01 Sjogren syndrome with keratoconjunctivitis; D50.9 Iron deficiency anemia, unspecified; Z79.899 Other long term (current) drug therapy ==